=== PATIENT | male | born 2000 | race Caucasian/White ===

== ENCOUNTER 2019-01-04 10:38 | Emergency (ER) | payer OTHER ==
[~2019-01-04] VITALS: Ht 182.9 cm; Wt 88.6 kg
[2019-01-04] MEDS ORDERED: AUGMENTIN 875 MG TAB PO ONE (13:30)
[2019-01-04] MEDS ORDERED: ACETAMINOPHEN 500 MG TAB PO ONE (13:30)
[2019-01-04] MEDS ORDERED: ONDANSETRON 4 MG ORAL DISINTEGRATING TAB (Q0162 PER 1MG) PO ONE (13:30)
[2019-01-04] MEDS ORDERED: IBUPROFEN 800 MG TAB PO ONE (13:30)
[2019-01-04] MEDS ORDERED: NAPR-837 PO (13:46)
[2019-01-04] MEDS ORDERED: AUGM875T28 PO (13:46)
[2019-01-04 13:48] VITALS: BP 142/79
== END 2019-01-04 14:01 | disposition home or self-care (01) ==
LOC: M ED 10:38
DX: J01.90 Acute sinusitis, unspecified (principal); J03.90 Acute tonsillitis, unspecified
CPT/HCPCS: 87880; 99284; Q0162